=== PATIENT | male | born 1995 | race Hispanic/Latino ===

== ENCOUNTER 2017-08-15 14:14 | Emergency (ER) | payer BC ==
[2017-08-15 14:26] VITALS: TEMP 98.4; O2SAT 100
[2017-08-15] MEDS ORDERED: Sodium Chloride 0.9% 1,000 ML IV STA (14:50)
--- NOTE | 2017-08-15 14:54 | ED PDOC ---
Arrival/HPI - General Chief Complaint: Abdominal Pain Time Seen by Provider: 08/15/17 14:36 Historian: Patient - History of Present Illness Narrative History of Present Illness (Text): 08/15/17 14:51 A 21 year old male with no significant past medical history, presents to the emergency department with 2-3 day duration right lower quadrant abdominal pain. The patient describes that pain as soreness and that it is exacerbated when he flexes or moves. The patient denies fevers, chills, headache, dizziness, chest pain, shortness of breath, dyspnea on exertion, cough, abdominal pain, nausea, vomiting, diarrhea, back pain, neck pain, urinary/bowel changes, penile discharge/pain, trauma/injury, or any other complaint. PMD: Dr. Bruce Time/Duration: Other (2-3 days) Symptom Onset: Sudden Symptom Course: Unchanged Activities at Onset: Rest, Light Context: Home Past Medical History - Provider Review Nursing Documentation Reviewed: Yes - Psychiatric Hx Substance Use: No Family/Social History - Physician Review Nursing Documentation Reviewed: Yes Family/Social History: No Known Family HX Smoking Status: Never Smoked Hx Alcohol Use: Yes Frequency of alcohol use: Socially Hx Substance Use: No Allergies/Home Meds Allergies/Adverse Reactions: Allergies No Known Allergies Allergy (Verified 08/15/17 14:26) Home Medications: Home Meds Medication Instructions Recorded Confirmed No Known Home Med 08/15/17 08/15/17 Review of Systems - Physician Review All systems were reviewed & negative as marked: Yes - Review of Systems Constitutional: absent: Fevers, Night Sweats ENT: absent: Sore Throat Respiratory: absent: SOB, Cough Cardiovascular: absent: Chest Pain, PATRICIO Gastrointestinal: Abdominal Pain (2-3 day duration RLQ Pain.). absent: Diarrhea , Nausea, Vomiting Genitourinary Male: absent: Urinary Output Changes Musculoskeletal: absent: Back Pain, Neck Pain Neurological: absent: Headache, Dizziness Physical Exam Vital Signs Reviewed: Yes Vital Signs Temp Pulse Resp BP Pulse Ox 08/15/17 17:26 60 18 120/70 100 08/15/17 17:00 58 L 18 118/69 100 08/15/17 15:35 55 L 18 121/71 100 08/15/17 14:23 98.4 F 53 L 16 119/75 100 Temperature: Afebrile Blood Pressure: Normal Pulse: Bradycardic Respiratory Rate: Normal Appearance: Positive for: Well-Appearing, Non-Toxic, Comfortable Pain Distress: None Mental Status: Positive for: Alert and Oriented X 3 - Systems Exam Head: Present: Atraumatic, Normocephalic Pupils: Present: PERRL Extroacular Muscles: Present: EOMI Conjunctiva: Present: Normal Mouth: Present: Moist Mucous Membranes Neck: Present: Normal Range of Motion Respiratory/Chest: Present: Clear to Auscultation, Good Air Exchange. No: Respiratory Distress, Accessory Muscle Use Cardiovascular: Present: Regular Rate and Rhythm, Normal S1, S2. No: Murmurs Abdomen: Present: Tenderness (Tenderness to the RLQ). No: McBurney's Point Tender Back: Present: Normal Inspection Upper Extremity: Present: Normal Inspection. No: Cyanosis, Edema Lower Extremity: Present: Normal Inspection. No: Edema Neurological: Present: GCS=15, CN II-XII Intact, Speech Normal Skin: Present: Warm, Dry, Normal Color. No: Rashes Psychiatric: Present: Alert, Oriented x 3, Normal Insight, Normal Concentration Medical Decision Making ED Course and Treatment: 08/15/17 14:57 Impression: A 21 year old male presents with 2-3 day duration RLQ pain. Patient states that the pain is exacerbated when flexing. On exam, RLQ tenderness but no McBurney's point tenderness. Differential Diagnosis included but are not limited to: Appendicitis vs. Muscle Pain Plan: -- Abdomen/Pelvis CT -- Toradol and IV Fluids -- Labs -- Urinalysis -- Reassess and disposition Progress Notes: ' 08/15/17 17:30 pprover : Surya Seaman MD Approver2 : Report Date : 08/15/2017 16:57:18 My Comment : ADDENDUM: Additional information provided after the interpretation by Dr. Craig indicates the following: The patient is afebrile The patient does not have an elevated white count The pain is more pelvic than RLQ There are no CT findings to suggest Appendicitis [ Addendum Report Added by Surya Seaman MD at 08/15/2017 17:04:50 ] PROCEDURE: CT Abdomen and Pelvis with contrast HISTORY: right lower abd pain r/o appendicitis KIDNEYS AND URETERS: Unremarkable. No hydronephrosis. No solid mass. BOWEL: Constipation without fecal impaction or obstruction. APPENDIX: No abnormalities to suggest acute appendicitis. No right lower quadrant inflammatory processes identified. Limitations of the current examination: Assessment right lower quadrant and pelvis is limited in the absence of oral contrast and body habitus with a paucity of abdominal and retroperitoneal fat. IMPRESSION: No acute findings related to/accounting for the clinical presentation. Limitations of the current examination: Related primarily to low BMI and absence of oral contrast. Additional benign and/or incidental findings described above. 08/15/17 17:31 The patient continues to feel no pain at this time. He has been constipated so will give Mag Citrate in ED. WBC nl. No fever. Patient was advised to make sure to follow up with his primary doctor. He was advised that if symptoms worsen, fever, vomiting, or any other concern to come to the ED. - Lab Interpretations Lab Results: 08/15/17 15:30 08/15/17 15:30 Lab Results 08/15/17 15:30: Sodium 140, Potassium 4.4, Chloride 102, Carbon Dioxide 27, Anion Gap 15, BUN 19, Creatinine 0.9, Est GFR ( Amer) > 60, Est GFR (Non- Af Amer) > 60, Random Glucose 87, Calcium 9.4, Total Bilirubin 0.7, AST 30, ALT 37, Alkaline Phosphatase 107, Total Protein 7.5, Albumin 4.5, Globulin 2.9, Albumin/Globulin Ratio 1.6, Lipase 65 08/15/17 15:30: Urine Color Straw, Urine Appearance Clear, Urine pH 6.5, Ur Specific [place] 1.010, Urine Protein Negative, Urine Glucose (UA) Negative, Urine Ketones Negative, Urine Blood Negative, Urine Nitrate Negative, Urine Bilirubin Negative, Urine Urobilinogen 0.2, Ur Leukocyte Esterase Trace H, Urine RBC Negative, Urine WBC 0 - 2, Ur Epithelial Cells 0 - 2, Urine Bacteria Neg 08/15/17 15:30: PT 11.5, INR 1.06, APTT 28.7 08/15/17 15:30: WBC 6.9, RBC 4.51, Hgb 13.2 L, Hct 40.0 L, MCV 88.7, MCH 29.3, MCHC 33.0, RDW 12.3, Plt Count 196, MPV 9.8, Gran % 61.8, Lymph % (Auto) 27.7, Nobles % (Auto) 6.6 H, Eos % (Auto) 3.3, Baso % (Auto) 0.6, Gran # 4.28, Lymph # 1.9, Nobles # 0.5, Eos # 0.2, Baso # 0.04 I have reviewed the lab results: Yes - RAD Interpretation Radiology Orders: 08/15/17 14:51 ABD & PELVIS IV CONTRAST ONLY [CT] Stat - Medication Orders Current Medication Orders: Discontinued Medications Sodium Chloride (Sodium Chloride 0.9%) 1,000 mls @ 100 mls/hr IV .Q10H STA Stop: 08/16/17 00:49 Last Admin: 08/15/17 15:25 Dose: 100 mls/hr eMAR Start Stop Document 08/15/17 15:25 SF (Rec: 08/15/17 15:41 [place] [email or web address] Intravenous Solution Start Date 08/15/17 Start Time 15:25 End Date 08/15/17 Ketorolac Tromethamine (Toradol) 30 mg IVP STAT STA Stop: 08/15/17 14:51 Last Admin: 08/15/17 15:41 Dose: Not Given Non-Admin Reason: Patient Refused Magnesium Citrate (Citrate Of Mag) 300 ml PO ONCE ONE Stop: 08/15/17 17:08 Last Admin: 08/15/17 17:24 Dose: 300 ml - Scribe Statement The provider has reviewed the documentation as recorded by the London Persaud Provider Scribe Attestation: All medical record entries made by the Sumaibjames were at my direction and personally dictated by me. I have reviewed the chart and agree that the record accurately reflects my personal performance of the history, physical exam, medical decision making, and the department course for this patient. I have also personally directed, reviewed, and agree with the discharge instructions and disposition. Disposition/Present on Arrival - Present on Arrival Any Indicators Present on Arrival: No History of DVT/PE: No History of Uncontrolled Diabetes: No Urinary Catheter: No History of Decub. Ulcer: No History Surgical Site Infection Following: None - Disposition Have Diagnosis and Disposition been Completed?: Yes Diagnosis: Abdominal pain, Constipation Disposition: HOME/ ROUTINE Disposition Time: 17:35 Patient Plan: Discharge Patient Problems: Current Active Problems Problem Status Onset Abdominal pain Acute Condition: IMPROVED Discharge Instructions (ExitCare): Acute Abdominal Pain (ED) Additional Instructions: Mr Cleary, thank you for letting us take care of you today. Your provider was Dr. Craig. You were treated for Abdominal Pain. The emergency medical care you received today was directed at your acute symptoms. If you were prescribed any medication, please fill it and take as directed. It may take several days for your symptoms to resolve. Return to the Emergency Department if your symptoms worsen, do not improve, or if you have any other problems. Please contact your doctor or call one of the physicians/clinics you have been referred to that are listed on the Patient Visit Information form that is included in your discharge packet. Bring any paperwork you were given at discharge with you along with any medications you are taking to your follow up visit. Our treatment cannot replace ongoing medical care by a primary care provider (PCP) outside of the emergency department. Thank you for allowing the [facility] team to be part of your care today. If you had an X-Ray or CT scan: A Radiologist will review the ED reading if any change in treatment is needed we will contact you. If you had a blood, urine, or wound culture: It will take several days for the results, if any change in treatment is needed we will contact you. If you had an STI test: It will take 48 hours for the results. Please call after 1 week if you have not heard back. Referrals: Angel Bruce MD [Primary Care Provider] - Follow up with primary Forms: [employer] (Chadian), SCHOOL NOTE, WORK NOTE
[2017-08-15 15:35] VITALS: RESP 18
[2017-08-15 15:55] LABS: BASO # 0.04 K/mm3 (0.0-2.0); BASO % 0.6 % (0.0-3.0); EOS # 0.2 (0.0-0.7); EOS % 3.3 % (1.5-5.0); GRAN # 4.28 (1.4-6.5); GRAN % 61.8 % (50.0-68.0); LYMPH # 1.9 (1.2-3.4); LYMPH % 27.7 % (22.0-35.0); MEAN CELL VOLUME 88.7 fl (80.0-105.0); MEAN CORPUSCULAR HEMOGLOBIN 29.3 pg (25.0-35.0); MEAN PLATELET VOLUME 9.8 fl (7.0-11.0); MONO # 0.5 (0.1-0.6); MONO % 6.6 % (1.0-6.0); RED CELL DISTRIBUTION WIDTH 12.3 % (11.5-14.5); WHITE BLOOD COUNT 6.9 10^3/ul (4.5-11.0)
[2017-08-15 15:57] LABS: PH,URINE 6.5 (4.7-8.0); URINE BILIRUBIN NEGATIVE (NEGATIVE); URINE BLOOD NEGATIVE (NEGATIVE); URINE GLUCOSE (UA) NEGATIVE (NEGATIVE); URINE KETONE NEGATIVE (NEGATIVE); URINE LEUKOCYTE ESTERASE TRACE Leu/uL (NEGATIVE); URINE PROTEIN NEGATIVE mg/dL (<30 mg/dL); URINE UROBILINOGEN 0.2 E.U./dL (<1 E.U./dL)
[2017-08-15 16:01] LABS: URINE APPEARANCE CLEAR (CLEAR); URINE COLOR STRAW (YELLOW)
[2017-08-15 16:03] LABS: INR 1.06 (0.93-1.08); PARTIAL THROMBOPLASTIN TIME 28.7 Seconds (23.7-30.8)
[2017-08-15 16:06] LABS: URINE BACTERIA NEG (NEG); URINE EPITHELIAL CELLS 0 - 2 /hpf (0-5); URINE RBC NEGATIVE /hpf (0-2); URINE WBC 0 - 2 /hpf (0-6)
[2017-08-15 16:07] LABS: ALB/GLOB RATIO 1.6 (1.1-1.8); ALKALINE PHOSPHATASE 107 U/L (38-126); ALT/SGPT 37 U/L (7-56); AST/SGOT 30 U/L (17-59); BILIRUBIN,TOTAL 0.7 mg/dL (0.2-1.3); BLOOD UREA NITROGEN 19 mg/dL (7-21); CALCIUM 9.4 mg/dL (8.4-10.5); CARBON DIOXIDE 27 mmol/L (21-33); CHLORIDE 102 mmol/L (98-107); GFR AFRICAN-AMERICAN > 60; GLUCOSE,RANDOM 87 mg/dL (70-110); LIPASE 65 U/L (23-300); POTASSIUM 4.4 mmol/L (3.6-5.0); SODIUM 140 mmol/L (132-148); TOTAL PROTEIN 7.5 g/dL (5.8-8.3)
[2017-08-15] MEDS ORDERED: Iohexol 350 MG/100 ML VIAL ONE (16:23)
--- NOTE | 2017-08-15 16:58 | CT ---
PROCEDURE: CT Abdomen and Pelvis with contrast HISTORY: right lower abd pain r/o appendicitis COMPARISON: None. TECHNIQUE: Contrast dose: 100 cc Omnipaque 350 Radiation dose: Total exam DLP = 644.24 mGy-cm. This CT exam was performed using one or more of the following dose reduction techniques: Automated exposure control, adjustment of the mA and/or kV according to patient size, and/or use of iterative reconstruction technique. FINDINGS: LOWER THORAX: Unremarkable. LIVER: Unremarkable. No gross lesion or ductal dilatation. GALLBLADDER AND BILE DUCTS: Unremarkable. PANCREAS: Unremarkable. No gross lesion or ductal dilatation. SPLEEN: Unremarkable. ADRENALS: Unremarkable. No mass. KIDNEYS AND URETERS: Unremarkable. No hydronephrosis. No solid mass. VASCULATURE: Unremarkable. No aortic aneurysm. BOWEL: Constipation without fecal impaction or obstruction. APPENDIX: No abnormalities to suggest acute appendicitis. No right lower quadrant inflammatory processes identified. Limitations of the current examination: Assessment right lower quadrant and pelvis is limited in the absence of oral contrast and body habitus with a paucity of abdominal and retroperitoneal fat. PERITONEUM: Unremarkable. No free fluid. No free air. LYMPH NODES: Unremarkable. No enlarged lymph nodes. BLADDER: Unremarkable. REPRODUCTIVE: Unremarkable. BONES: No acute fracture. OTHER FINDINGS: None. IMPRESSION: No acute findings related to/accounting for the clinical presentation. Limitations of the current examination: Related primarily to low BMI and absence of oral contrast. Additional benign and/or incidental findings described above.
[2017-08-15] MEDS ORDERED: Magnesium Citrate Oral SOL (300 ml) PO ONE (17:07)
[2017-08-15 17:27] VITALS: BP 120/70; PULSE 60
== END 2017-08-15 17:29 | disposition home or self-care (01) ==
LOC: ED 14:14
DX: R10.31 Right lower quadrant pain (principal); K59.00 Constipation, unspecified
CPT/HCPCS: 74177; 80053; 81001; 83690; 85025; 85610; 85730; 87086; 99285; J7040; Q9967

== ENCOUNTER 2017-08-23 16:28 | Emergency (ER) | payer BC ==
[2017-08-23 16:35] VITALS: BP 118/71; PULSE 68; RESP 18; TEMP 98.3; O2SAT 99
--- NOTE | 2017-08-23 17:20 | ED PDOC ---
Arrival/HPI - General Chief Complaint: Lower Extremity Problem/Injury Time Seen by Provider: 08/23/17 17:16 Historian: Patient - History of Present Illness Narrative History of Present Illness (Text): 08/23/17 17:16 This 21-year-old male who denies past medical history, presents to the emergency department complaining of right ankle and right foot pain 6 days. Patient stated while playing football at school he accidentally twisted his right ankle. Patient has been keeping his ankle elevated and ice. Patient notices producing has been worsening. Patient is requesting to have x-rays taken. Patient denies calf pain, proximal lateral knee pain, head injury, neck pain, chest pain, shortness of breath, hip pain, back pain, dizziness, or abnormal Time/Duration: < week Quality: Aching Context: School Past Medical History - Provider Review Nursing Documentation Reviewed: Yes - Infectious Disease Hx of Infectious Diseases: None - Psychiatric Hx Substance Use: No Family/Social History - Physician Review Nursing Documentation Reviewed: Yes Family/Social History: Other Smoking Status: Never Smoked Hx Alcohol Use: Yes Hx Substance Use: No Allergies/Home Meds Allergies/Adverse Reactions: Allergies No Known Allergies Allergy (Verified 08/23/17 16:30) Review of Systems - Review of Systems Constitutional: Normal. absent: Fatigue, Weight Change, Fevers Eyes: Normal ENT: Normal Respiratory: Normal. absent: SOB, Cough Cardiovascular: Normal. absent: Chest Pain Gastrointestinal: Normal. absent: Abdominal Pain, Nausea, Vomiting Genitourinary Male: Normal. absent: Dysuria, Hematuria Musculoskeletal: Other (see hpi) Skin: Normal Neurological: Normal Endocrine: Normal Hemo/Lymphatic: Normal Psychiatric: Normal Physical Exam Vital Signs Temp Pulse Resp BP Pulse Ox 08/23/17 16:32 98.3 F 68 18 118/71 99 Temperature: Afebrile Blood Pressure: Normal Pulse: Regular Respiratory Rate: Normal Appearance: Positive for: Well-Appearing, Non-Toxic, Comfortable Pain Distress: None Mental Status: Positive for: Alert and Oriented X 3 - Systems Exam Head: Present: Atraumatic, Normocephalic. No: Ecchymosis, Abrasion Pupils: Present: PERRL Extroacular Muscles: Present: EOMI Conjunctiva: Present: Normal Mouth: Present: Moist Mucous Membranes Neck: Present: Normal Range of Motion, Trachea Midline. No: Meningeal Signs Upper Extremity: Present: Normal Inspection, Normal ROM, NORMAL PULSES, Capillary Refill < 2s Lower Extremity: Present: NORMAL PULSES, Normal ROM, Tenderness, Neurovascularly Intact, Capillary Refill < 2 s, Other (Right lateral malleolus is nontender with ecchymosis. No deformity). No: Edema, CALF TENDERNESS, Murphy 's Sign, Erythema, Deformity, Temperature Abnormalties Neurological: Present: GCS=15, CN II-XII Intact, Speech Normal, Motor Func Grossly Intact, Normal Sensory Function, Normal Cerebellar Funct, Gait Normal, Memory Normal Skin: Present: Warm, Dry, Normal Color. No: Rashes Psychiatric: Present: Alert, Oriented x 3, Normal Insight Medical Decision Making ED Course and Treatment: 08/23/17 17:53 Re-evaluation. Patient feels better. Discussed results and plan with patient who expresses understanding. All questions answered and there is agreement with the plan to discharge home with instructions. Patient stable for discharge. Return if symptoms persist or worsen. 08/23/17 17:53 Air cast, fam bandage were provided. Patient is refuses crutches Re-evaluation Time: 17:53 Reassessment Condition: Re-examined, Improved - RAD Interpretation Narrative RAD Interpretations (Text): 08/23/17 17:52 Accession No. : [id number] Patient Name / ID : FREDA MORALES / [id number] Exam Date : 08/23/2017 17:40:28 ( Approved ) Study Comment : Sex / Age : M / 21Y Creator : Surya Dye MD Dictator : Surya Dye MD Ironworker Wire Fence Erector : Foot Roentgenologist : Surya Dye MD Approver2 : Report Date : 08/23/2017 17:51:10 My Comment : This report is currently processing and HAS NOT BEEN OFFICIALLY SIGNED BY THE PHYSICIAN - ESTIMATED TIME OF APPROVAL IS 08/23/2017 17:56. PROCEDURE: Right Ankle Radiographs. HISTORY: Posttraumatic lateral malleolar pain COMPARISON: None FINDINGS: BONES: Normal. No fracture. JOINTS: Normal. No osteoarthritis. Ankle mortise maintained. Talar dome intact SOFT TISSUES: Lateral soft tissue swelling without distal fibular abnormality OTHER FINDINGS: None. IMPRESSION: Soft tissue swelling without acute articular or osseous abnormality. 08/23/17 17:53 Accession No. : [id number] Patient Name / ID : FREDA MORALES / [id number] Exam Date : 08/23/2017 17:43:13 ( Approved ) Study Comment : Sex / Age : M / 21Y Creator : Surya Dye MD Dictator : Surya Dye MD Ironworker Wire Fence Erector : Foot Roentgenologist : Surya Dye MD Approver2 : Report Date : 08/23/2017 17:50:34 My Comment : PROCEDURE: Right Foot Radiographs. HISTORY: Trauma attention lateral malleolar region COMPARISON: None. FINDINGS: BONES: Normal. No fracture. JOINTS: Normal. SOFT TISSUES: Normal. OTHER FINDINGS: None. IMPRESSION: No acute findings related to/accounting for the clinical presentation. Radiology Orders: 08/23/17 17:17 ANKLE RIGHT 3 VIEWS ROUTINE [RAD] Stat FOOT RIGHT 3 VIEWS ROUTINE [RAD] Stat Disposition/Present on Arrival - Present on Arrival Any Indicators Present on Arrival: No History of DVT/PE: No History of Uncontrolled Diabetes: No Urinary Catheter: No History of Decub. Ulcer: No History Surgical Site Infection Following: None - Disposition Have Diagnosis and Disposition been Completed?: Yes Diagnosis: Right ankle strain Disposition: HOME/ ROUTINE Disposition Time: 17:54 Patient Plan: Discharge Patient Problems: Current Active Problems Problem Status Onset Right ankle strain Acute Condition: GOOD Discharge Instructions (ExitCare): Ankle Sprain (ED), Ankle Stirrup Splint (ED) Additional Instructions: Cold to private doctor in one to 2 days for reevaluation. Keep to her right ankle elevated, ice, Fam bandage, ice, for at least 5 days. Avoid exercise, Jos , or sports until cleared by your doctor. Always remove Fam bandage and Aircast at bedtime and take medications as instructed with food Prescriptions: Ibuprofen [Motrin] 600 mg PO Q8 PRN #20 tab PRN Reason: Pain, Severe (8-10) Referrals: Iván Leigh, [Primary Care Provider] - Follow up with primary Lucian Hillman DPM [Staff Provider] - Follow up with primary Forms: [employer] (Spanish)
--- NOTE | 2017-08-23 17:52 | RAD ---
PROCEDURE: Right Ankle Radiographs. HISTORY: Posttraumatic lateral malleolar pain COMPARISON: None FINDINGS: BONES: Normal. No fracture. JOINTS: Normal. No osteoarthritis. Ankle mortise maintained. Talar dome intact SOFT TISSUES: Lateral soft tissue swelling without distal fibular abnormality OTHER FINDINGS: None. IMPRESSION: Soft tissue swelling without acute articular or osseous abnormality.
--- NOTE | 2017-08-23 17:52 | RAD ---
PROCEDURE: Right Foot Radiographs. HISTORY: Trauma attention lateral malleolar region COMPARISON: None. FINDINGS: BONES: Normal. No fracture. JOINTS: Normal. SOFT TISSUES: Normal. OTHER FINDINGS: None. IMPRESSION: No acute findings related to/accounting for the clinical presentation.
== END 2017-08-23 18:05 | disposition home or self-care (01) ==
LOC: ED 16:28
DX: S96.911A Strain of unspecified muscle and tendon at ankle and foot level, right foot, initial encounter (principal); X50.1XXA Overexertion from prolonged static or awkward postures, initial encounter; Y93.61 Activity, american tackle football; Y92.219 Unspecified school as the place of occurrence of the external cause

== ENCOUNTER 2017-11-14 08:36 | Emergency (ER) | payer BC ==
[2017-11-14 08:48] VITALS: TEMP 97
--- NOTE | 2017-11-14 08:58 | ED PDOC ---
Arrival/HPI - General Chief Complaint: Headache Time Seen by Provider: 11/14/17 08:47 Historian: Patient - History of Present Illness Narrative History of Present Illness (Text): 11/14/17 08:54 22yo male with no PMHx who present with complaint of right sided headache x days. Notes that he just started taking antibiotics yesterday for sinus infection. states he was hit on the head 2weeks ago, during a basketball game. He had dizziness and was nauseous, but the symptoms resolved. He only started having the headache recently and thinks it might be secondary to his sinus. He has been taking Ibuprofen without relieve. He denies focal weakness, photophobia , nausea, vomiting, abdominal pain, neck pain, rash, any other complaint. Past Medical History - Provider Review Nursing Documentation Reviewed: Yes - Infectious Disease Hx of Infectious Diseases: None - HEENT Other/Comment: sinus infection - Psychiatric Hx Substance Use: No - Anesthesia Hx Anesthesia: No Family/Social History - Physician Review Nursing Documentation Reviewed: Yes Family/Social History: Unknown Family HX Smoking Status: Never Smoked Hx Alcohol Use: Yes Hx Substance Use: No Allergies/Home Meds Allergies/Adverse Reactions: Allergies No Known Allergies Allergy (Verified 08/23/17 16:30) Review of Systems - Physician Review All systems were reviewed & negative as marked: Yes - Review of Systems Constitutional: Normal Eyes: Normal ENT: Normal Respiratory: Normal Cardiovascular: Normal Gastrointestinal: Normal Genitourinary Male: Normal Musculoskeletal: Normal Skin: Normal Neurological: Headache. absent: Dizziness, Focal Weakness, Speech Changes, Facial Droop Endocrine: Normal Hemo/Lymphatic: Normal Psychiatric: Normal Physical Exam Vital Signs Reviewed: Yes Vital Signs Temp Pulse Resp BP Pulse Ox 11/14/17 10:06 75 17 128/80 100 11/14/17 08:45 97 F L 78 16 126/77 98 Temperature: Afebrile Blood Pressure: Normal Pulse: Regular Respiratory Rate: Normal Appearance: Positive for: Well-Appearing, Non-Toxic, Comfortable Pain Distress: None Mental Status: Positive for: Alert and Oriented X 3 - Systems Exam Head: Present: Atraumatic, Normocephalic Pupils: Present: PERRL Extroacular Muscles: Present: EOMI Conjunctiva: Present: Normal Mouth: Present: Moist Mucous Membranes Neck: Present: Normal Range of Motion Respiratory/Chest: Present: Clear to Auscultation, Good Air Exchange. No: Respiratory Distress, Accessory Muscle Use Cardiovascular: Present: Regular Rate and Rhythm, Normal S1, S2. No: Murmurs Abdomen: Present: Normal Bowel Sounds. No: Tenderness, Distention, Peritoneal Signs Back: Present: Normal Inspection Upper Extremity: Present: Normal Inspection. No: Cyanosis, Edema Lower Extremity: Present: Normal Inspection. No: Edema Neurological: Present: GCS=15, CN II-XII Intact, Speech Normal, Motor Func Grossly Intact, Normal Sensory Function, Normal Cerebellar Funct, Norm Deep Tendon Reflexes, Gait Normal, Memory Normal, Normal 2Pt Descrimination, Other ( No focal neurological deficit) Skin: Present: Warm, Dry, Normal Color. No: Rashes Psychiatric: Present: Alert, Oriented x 3, Normal Insight, Normal Concentration Medical Decision Making ED Course and Treatment: 11/14/17 18:33 Pt was neurologically intact in ED. On re evaluation he notes that his headache improved in ED with medication. Head CT - Negative Result was DW the pt. he was advised to continue his abx. Rx Fioricet given. Referred to his PMD. TRT ED for any new or worsening symptoms. - RAD Interpretation Radiology Orders: 11/14/17 08:53 HEAD W/O CONTRAST [CT] Stat - Medication Orders Current Medication Orders: Discontinued Medications Tramadol HCl (Ultram) 50 mg PO STAT STA Stop: 11/14/17 08:54 Last Admin: 11/14/17 09:23 Dose: 50 mg YANET Pain Assessment Document 11/14/17 09:23 MS (Rec: 11/14/17 09:25 [facility] Pain Reassessment Is this a pain reassessment? No Sleep Is patient sleeping during reassessment? No Presence of Pain Presence of Pain Yes Pain Scale Used Pain Scale Used Numeric Location Pain Location Body Towel Sewer Description Description Throbbing Intensity of Pain at present 5 Pain Behavior Rubbing Site Restlessness Disposition/Present on Arrival - Present on Arrival Any Indicators Present on Arrival: No History of DVT/PE: No History of Uncontrolled Diabetes: No Urinary Catheter: No History of Decub. Ulcer: No History Surgical Site Infection Following: None - Disposition Have Diagnosis and Disposition been Completed?: Yes Diagnosis: Headache Disposition: HOME/ ROUTINE Disposition Time: 10:00 Patient Plan: Discharge Condition: STABLE Discharge Instructions (ExitCare): Acute Headache (ED) Additional Instructions: Follow up with your doctor Return to ED for any new or worsening symptoms Prescriptions: Acetaminophen/Butalbital/Caf [Fioricet] 1 tab PO Q4 #10 tab Referrals: Angel Bruce MD [Primary Care Provider] - Follow up with primary Forms: [employer] (Swedish)
--- NOTE | 2017-11-14 09:50 | CT ---
PROCEDURE: CT HEAD WITHOUT CONTRAST. HISTORY: headache COMPARISON: None available. TECHNIQUE: Axial computed tomography images were obtained through the head/brain without intravenous contrast. Radiation dose: Total exam DLP = 820 mGy-cm. This CT exam was performed using one or more of the following dose reduction techniques: Automated exposure control, adjustment of the mA and/or kV according to patient size, and/or use of iterative reconstruction technique. FINDINGS: HEMORRHAGE: No intracranial hemorrhage. BRAIN: No mass effect or edema. No atrophy or chronic microvascular ischemic changes. VENTRICLES: Unremarkable. No hydrocephalus. CALVARIUM: Unremarkable. PARANASAL SINUSES: There is opacification of the ethmoid air cells MASTOID AIR CELLS: Unremarkable as visualized. No inflammatory changes. OTHER FINDINGS: None. IMPRESSION: No acute findings
[2017-11-14 10:09] VITALS: BP 128/80; PULSE 75; RESP 17; O2SAT 100
== END 2017-11-14 10:09 | disposition home or self-care (01) ==
LOC: ED 08:36
DX: R51 Headache (principal)

== ENCOUNTER 2017-11-17 15:21 | Emergency (ER) | payer BC ==
--- NOTE | 2017-11-17 15:58 | ED PDOC ---
Arrival/HPI - General Chief Complaint: GI Problem Time Seen by Provider: 11/17/17 15:56 Historian: Patient - History of Present Illness Narrative History of Present Illness (Text): 11/17/17 15:58 This 22 yo male presents to this ED c/o nausea, vomiting x 3 days. Patient denies abdominal pain. Patient denies sob, cp, diarrhea, rectal bleeding, urinary symptoms, drug use, fever, dizziness, or abnormal gait. Time/Duration: Other (see hpi) Context: Home Past Medical History - Provider Review Nursing Documentation Reviewed: Yes - Infectious Disease Hx of Infectious Diseases: None - Cardiac Hx Cardiac Disorders: No - Pulmonary Hx Respiratory Disorders: No - Neurological Hx Neurological Disorder: Yes Hx Migraine: Yes - HEENT Hx HEENT Disorder: Yes Other/Comment: sinus infection - Renal Hx Renal Disorder: No - Endocrine/Metabolic Hx Endocrine Disorders: No - Hematological/Oncological Hx Blood Disorders: No - Integumentary Hx Dermatological Disorder: No - Musculoskeletal/Rheumatological Hx Musculoskeletal Disorders: No - Gastrointestinal Hx Gastrointestinal Disorders: No - Genitourinary/Gynecological Hx Genitourinary Disorders: No - Psychiatric Hx Psychophysiologic Disorder: No Hx Substance Use: No - Anesthesia Hx Anesthesia: No Family/Social History - Physician Review Nursing Documentation Reviewed: Yes Family/Social History: Other (noncontributory) Smoking Status: Never Smoked Hx Alcohol Use: Yes Hx Substance Use: No Allergies/Home Meds Allergies/Adverse Reactions: Allergies No Known Allergies Allergy (Verified 11/17/17 15:43) Review of Systems - Review of Systems Constitutional: Normal. absent: Fatigue, Weight Change Eyes: Normal ENT: Normal Respiratory: Normal Cardiovascular: Normal Gastrointestinal: Nausea, Vomiting Genitourinary Male: Normal Musculoskeletal: Normal Skin: Normal Neurological: Normal Endocrine: Normal Hemo/Lymphatic: Normal Psychiatric: Normal Physical Exam Vital Signs Temp Pulse Resp BP Pulse Ox 11/17/17 18:08 86 18 116/71 98 11/17/17 15:43 97.8 F 94 H 17 118/77 96 Temperature: Afebrile Blood Pressure: Normal Pulse: Regular Respiratory Rate: Normal Appearance: Positive for: Well-Appearing, Non-Toxic, Comfortable Pain Distress: None Mental Status: Positive for: Alert and Oriented X 3 - Systems Exam Head: Present: Atraumatic, Normocephalic Pupils: Present: PERRL Extroacular Muscles: Present: EOMI Conjunctiva: Present: Normal Mouth: Present: Moist Mucous Membranes Neck: Present: Normal Range of Motion Respiratory/Chest: Present: Clear to Auscultation, Good Air Exchange. No: Respiratory Distress, Accessory Muscle Use Cardiovascular: Present: Regular Rate and Rhythm, Normal S1, S2. No: Murmurs Abdomen: Present: Normal Bowel Sounds. No: Tenderness, Distention, Peritoneal Signs, Rebound, Guarding Back: Present: Normal Inspection Upper Extremity: Present: Normal Inspection. No: Cyanosis, Edema Lower Extremity: Present: Normal Inspection. No: Edema Neurological: Present: GCS=15, CN II-XII Intact, Speech Normal Skin: Present: Warm, Dry, Normal Color. No: Rashes Psychiatric: Present: Alert, Oriented x 3, Normal Insight, Normal Concentration Medical Decision Making ED Course and Treatment: 11/17/17 19:12 Re-evaluation. Patient feels better. Discussed results and plan with patient who expresses understanding. All questions answered and there is agreement with the plan to discharge home with instructions. Patient stable for discharge. Return if symptoms persist or worsen. Abdomen is soft, nt/nd. Patient feels better, and he wishes to be discharge home. Re-evaluation Time: 19:13 Reassessment Condition: Re-examined, Improved - Lab Interpretations Lab Results: 11/17/17 16:25 11/17/17 16:25 Lab Results 11/17/17 18:15: Urine Color Yellow, Urine Appearance Clear, Urine pH 6.0, Ur Specific Ebony 1.025, Urine Protein Trace H, Urine Glucose (UA) Negative, Urine Ketones Negative, Urine Blood Negative, Urine Nitrate Negative, Urine Bilirubin Negative, Urine Urobilinogen 1.0 H, Ur Leukocyte Esterase Negative, Urine RBC 0 - 2, Urine WBC 0 - 2, Ur Epithelial Cells 1 - 3, Urine Bacteria Neg 11/17/17 17:15: Influenza Typ A,B (EIA) Negative for flu a/b 11/17/17 16:25: EBV Capsid Ag IgG Ab <18.00, EBV Capsid Ag IgM Ab <36.00, EBV Nuclear Antigen Ab <18.00, EBV Interpretation See note 11/17/17 16:25: Sodium 144, Potassium 3.8, Chloride 98, Carbon Dioxide 31, Anion Gap 19, BUN 19, Creatinine 1.0, Est GFR ( Amer) > 60, Est GFR (Non- Af Amer) > 60, Random Glucose 106, Calcium 10.0, Total Bilirubin 0.7, AST 34, ALT 34, Alkaline Phosphatase 101, Total Protein 8.9 H, Albumin 4.9 H, Globulin 4.0, Albumin/Globulin Ratio 1.2, Lipase 53 11/17/17 16:25: WBC 7.0, RBC 5.12, Hgb 15.3 D, Hct 45.1, MCV 88.1, MCH 29.9, MCHC 33.9, RDW 12.3, Plt Count 286, MPV 9.9, Gran % 77.7 H, Lymph % (Auto) 12.6 L, Leake % (Auto) 6.7 H, Eos % (Auto) 2.7, Baso % (Auto) 0.3, Gran # 5.44, Lymph # 0.9 L, Leake # 0.5, Eos # 0.2, Baso # 0.02 I have reviewed the lab results: Yes Interpretation: No clinic. lab abnormalty - Medication Orders Current Medication Orders: Discontinued Medications Famotidine (Pepcid) 20 mg IVP STAT STA Stop: 11/17/17 16:12 Last Admin: 11/17/17 16:29 Dose: 20 mg IVP Administration Document 11/17/17 16:29 TA (Rec: 11/17/17 16:29 [id number]) Charges for Administration # of IVP Administrations 1 Sodium Chloride (Sodium Chloride 0.9%) 1,000 mls @ 1,000 mls/hr IV .Q1H STA Stop: 11/17/17 17:10 Last Admin: 11/17/17 15:25 Dose: 1,000 mls/hr eMAR Start Stop Document 11/17/17 15:25 TA (Rec: 11/17/17 16:27 TA [id number]) Intravenous Solution Start Date 11/17/17 Start Time 15:25 Ondansetron HCl (Zofran Inj) 4 mg IVP STAT STA Stop: 11/17/17 16:12 Last Admin: 11/17/17 16:29 Dose: 4 mg IVP Administration Document 11/17/17 16:29 TA (Rec: 11/17/17 16:29 [id number] Charges for Administration # of IVP Administrations 1 Disposition/Present on Arrival - Present on Arrival Any Indicators Present on Arrival: No History of DVT/PE: No History of Uncontrolled Diabetes: No Urinary Catheter: No History of Decub. Ulcer: No History Surgical Site Infection Following: None - Disposition Have Diagnosis and Disposition been Completed?: Yes Diagnosis: Nausea and vomiting Disposition: HOME/ ROUTINE Disposition Time: 19:13 Patient Plan: Discharge Condition: IMPROVED Discharge Instructions (ExitCare): Acute Nausea and Vomiting (ED) Additional Instructions: Call private doctor for follow up visit in 1-2 days. Take medication as instructed with food. Do not take Ibuprofen or Naproxen. Return to emergency if you develop abdominal pain, worsening of symptoms, or if new symptoms Prescriptions: Famotidine [Pepcid] 40 mg PO DAILY #10 tablet Ondansetron ODT [Zofran ODT] 4 mg PO Q4H PRN #15 odt PRN Reason: Nausea/Vomiting Sucralfate [Carafate] 1 gm PO DAILY #10 tab Referrals: Angel Bruce MD [Primary Care Provider] - Follow up with primary Forms: [employer] Connect ([place]), WORK NOTE
[2017-11-17 16:00] VITALS: TEMP 97.8
[2017-11-17] MEDS ORDERED: Sodium Chloride 0.9% 1,000 ML IV STA (16:11)
[2017-11-17 16:37] LABS: BASO # 0.02 K/mm3 (0.0-2.0); BASO % 0.3 % (0.0-3.0); EOS # 0.2 (0.0-0.7); EOS % 2.7 % (1.5-5.0); GRAN # 5.44 (1.4-6.5); GRAN % 77.7 % (50.0-68.0); HEMOGLOBIN 15.3 g/dL (14.0-18.0); LYMPH # 0.9 (1.2-3.4); LYMPH % 12.6 % (22.0-35.0); MEAN CELL VOLUME 88.1 fl (80.0-105.0); MEAN CORPUSCULAR HEMOGLOBIN 29.9 pg (25.0-35.0); MEAN CORPUSCULAR HGB CONC 33.9 g/dl (31.0-37.0); MEAN PLATELET VOLUME 9.9 fl (7.0-11.0); MONO # 0.5 (0.1-0.6); MONO % 6.7 % (1.0-6.0); RBC 5.12 10^6/uL (3.5-6.1); RED CELL DISTRIBUTION WIDTH 12.3 % (11.5-14.5)
[2017-11-17 16:42] LABS: ALBUMIN 4.9 g/dL (3.0-4.8); GFR AFRICAN-AMERICAN > 60; GFR NON-AFRICAN AMERICAN > 60; LIPASE 53 U/L (23-300)
[2017-11-17 16:50] LABS: ALB/GLOB RATIO 1.2 (1.1-1.8); ALT/SGPT 34 U/L (7-56); AST/SGOT 34 U/L (17-59); BLOOD UREA NITROGEN 19 mg/dL (7-21)
[2017-11-17 18:08] VITALS: BP 116/71; PULSE 86; RESP 18; O2SAT 98
[2017-11-17 18:34] LABS: URINE BILIRUBIN NEGATIVE (NEGATIVE); URINE BLOOD NEGATIVE (NEGATIVE); URINE GLUCOSE (UA) NEGATIVE (NEGATIVE); URINE LEUKOCYTE ESTERASE NEGATIVE Leu/uL (NEGATIVE); URINE NITRATE NEGATIVE (NEGATIVE); URINE PROTEIN TRACE mg/dL (<30 mg/dL)
[2017-11-17 18:36] LABS: URINE APPEARANCE CLEAR (CLEAR)
[2017-11-17 18:37] LABS: URINE COLOR YELLOW (YELLOW)
[2017-11-17 19:24] LABS: URINE RBC 0 - 2 /hpf (0-2); URINE WBC 0 - 2 /hpf (0-6)
[2017-11-17 19:25] LABS: URINE BACTERIA NEG (NEG)
== END 2017-11-17 20:40 | disposition home or self-care (01) ==
LOC: ED 15:21
DX: R11.2 Nausea with vomiting, unspecified (principal)
CPT/HCPCS: 80053; 81001; 83690; 85025; 86664; 86665; 87804; 96374; 96375; 99283; J2405; J7040

== ENCOUNTER 2019-01-11 15:08 | Emergency (ER) | payer OTHER, BC | END 2019-01-11 17:35 | disposition home or self-care (01) | LOC: ED 15:08 ==